=== PATIENT | female | born 1985 | race Caucasian/White ===

== ENCOUNTER 2024-09-05 19:38 | Emergency (ER) | payer OTHER, SELFPAY ==
[2024-09-05 19:39] VITALS: BP 131/82; PULSE 90; RESP 17; TEMP 36.8; O2SAT 97; BMI 41.8
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
[2024-09-05 23:26] VITALS: BP 131/82; PULSE 90; RESP 17; TEMP 36.8; O2SAT 97
== END 2024-09-05 23:26 | disposition home or self-care (01) ==
PROVIDERS: Emergency Provider Emergency Medicine; Visit Provider Emergency Medicine
DX: O9A.212 Injury, poisoning and certain other consequences of external causes complicating pregnancy, second trimester (principal); O99.891 Other specified diseases and conditions complicating pregnancy; S19.9XXA Unspecified injury of neck, initial encounter; M54.2 Cervicalgia; Z3A.19 19 weeks gestation of pregnancy; V89.2XXA Person injured in unspecified motor-vehicle accident, traffic, initial encounter
CPT/HCPCS: 76816; 99282